=== PATIENT | female | born 1945 | race Caucasian/White ===

== ENCOUNTER → 2016-09-10 | Outpatient (CLI) | payer MEDICARE, OTHER ==
[2016-09-10 14:09] LABS: ANION GAP 8 MEQ/L (5-15); BUN/CREATININE RATIO 19 RATIO (6-26); CALCIUM 9.8 MG/DL (8.4-10.2); CHLORIDE 109 MEQ/L (98-107); CO2 - CARBON DIOXIDE 29 MEQ/L (22-30); CREATININE 1.2 MG/DL (0.7-1.2); GLOMERULAR FILTRATION RATE 44; GLUCOSE 139 MG/DL (65-110); POTASSIUM 4.9 MEQ/L (3.6-5); SODIUM 146 MEQ/L (134-144)
== END ==
LOC: LABN 13:54
PROVIDERS: ATTEND Nurse Practitioner Family
DX: M25.562 Pain in left knee (principal)
CPT/HCPCS: 80048; 85379

== ENCOUNTER 2016-11-20 07:01 | Inpatient (IN) ==
[~2016-11-20 07:01] MED LIST: CEFAZOLIN 1 G INJECTION IV ONE
[2016-11-20] MEDS ORDERED: LR 1,000 ML IV SCH (07:12)
[2016-11-20] MEDS ORDERED: NOZIN NASAL SWAB NAS ONE ×2 (07:12→11:48)
[2016-11-20] MEDS ORDERED: ACETAMINOPHEN 500 MG TABLET PO ONE (07:12)
[2016-11-20] MEDS ORDERED: METOCLOPRAMIDE 10mg/2ml INJECTION IVP ONE (07:12)
[2016-11-20] MEDS ORDERED: CEFAZOLIN 1 G INJECTION IV ONE (07:12)
[2016-11-20] MEDS ORDERED: FAMOTIDINE PREMIX 20 MG/50 ML BAG IV ONE (07:12)
[2016-11-20] MEDS ORDERED: MELOXICAM 15 MG TABLET PO ONE (07:12)
[2016-11-20] MEDS ORDERED: ONDANSETRON 4 MG/2 ML INJECTION IVP ONE (07:12)
[2016-11-20] MEDS ORDERED: EPINEPHrine 0.25 MG, BUPIVACAINE 0.25% PF 75 ML, MORPHINE SULFATE 15 MG, KETOROLAC INJ ... IJ ONE (07:12)
[2016-11-20] MEDS ORDERED: TRANEXAMIC ACID 1,000 MG in NS 100 ML IV ONE (07:12)
[2016-11-20] MEDS ORDERED: LIDOCAINE 1% (10mg/ml) 10mL MDV SQ ONE (07:12)
[2016-11-20] MEDS ORDERED: DEXAMETHASONE 4 MG/ML INJECTION IVP ONE (07:12)
[2016-11-20] MEDS ORDERED: VANCOMYCIN 1,000 MG INJECTION IA ONE (07:45)
[2016-11-20] MEDS ORDERED: LIDOCAINE 1% (10mg/ml) 2mL INJ PF SDV INFIL ONE (08:06)
--- NOTE | 2016-11-20 08:23 | Anesthesia Preoperative Report ---
Anesthesia Preoperative Record - Date and Time Preoperative Diagnosis: Severe deg OA Left knee Proposed Procedure: Lwft TKA NPO since: [place] Allergies/Adverse Reactions: Allergies Allergy/AdvReac Type Severity Reaction Status Date / Time No Known Allergies Allergy Unverified 11/11/16 08:48 - Vital Signs Vital Signs: Temp Pulse Resp BP Pulse Ox 97.9 F 76 16 130/81 97 11/20/16 07:20 11/20/16 07:20 11/20/16 07:20 11/20/16 07:20 11/20/16 07:20 - Medications Inpatient Medications: Current Medications Lactated Ringer's (Lactated Ringers) 1,000 mls @ 50 mls/hr IV .Q20H CLIFFORD Last Admin: 11/20/16 08:09 Dose: 50 mls/hr Lidocaine HCl (Xylocaine-Mpf 1% Vial) 20 mg INFIL O ONE Stop: 11/20/16 08:07 Last Admin: 11/20/16 08:08 Dose: 20 mg Home Medications: Home Medications Medication Instructions Recorded Confirmed Type Acetaminophen [Tylenol Extra 2 tab PO TID PRN #0 tab 10/13/16 History Strength] Meloxicam 15 mg PO DAILY #0 tab 10/13/16 History Is Patient on Beta Marilyn?: No - Surgical History GI Surgery/Treatments: Reports: Other (COLONOSCOPY) Reproductive Surgery/Treatment: Reports: Hysteroscopy (2003), Tubal Ligation - Social History Smoking Status: Never smoker Hx Chewing Tobacco Use: No Second Hand Exposure: No Substance Use Type: does not use Alcohol Intake Frequency: a few times a week (wine) Last Drink: hours (ago) (11/19/16) - Pertinent Findings EKG Rhythm: Normal Sinus Rhythm - Airway Assessment Mallampati Score: I TMD: 3 Fingerbreadths Neck Extension: good Overall Assessment: no airway concerns - ASA ASA Score: 2 - Plan Regional/Trunk Block: Spinal Peripheral Nerve Block: Saphenous-Left - Discussion Discussion: Discussed risks/options/alternatives of anesthesia and questions answered. Patient consents. Nursing pain assessment noted. Present for Discussion: spouse Attestation Statement: Prior to the delivery of any anesthetic medication, I examined the patient, developed the plan, obtained the patient's consent and discussed the risk and benefits of the procedure with the patient/guardian.
[2016-11-20] MEDS ORDERED: MIDAZOLAM 2mg/2ml INJECTION IVP ONE (09:00)
[2016-11-20] MEDS ORDERED: PROPOFOL 500 MG/50 ML IV ONE (09:00)
[2016-11-20] MEDS ORDERED: KETAMINE 500 MG/10 ML INJECTION IVP ONE (09:00)
[2016-11-20] MEDS ORDERED: FentaNYL 100 MCG/2 ML INJECTION IVP ONE (09:00)
[2016-11-20] MEDS ORDERED: ROPIVACAINE 0.5% (5mg/ml) 30ml INJ INJ ONE (09:00)
[2016-11-20] MEDS ORDERED: ONDANSETRON 4 MG/2 ML INJECTION IVP PRN ×3 (09:13→15:00)
[2016-11-20] MEDS ORDERED: HYDROMORPHONE 2 MG/ML INJECTION IVP PRN (09:13)
--- NOTE | 2016-11-20 10:37 | Operative Note ---
- Procedure Date of Admission: 11/20/16 Side: left Preoperative Diagnosis: knee primary DJD Postoperative Diagnosis: Same as preoperative diagnosis. Operation: total knee arthroplasty Surgeon: Derrick Mccullough MD Specimen Transporter: SIMON Del Valle Complications: None. Regional/Trunk Block: Spinal Estimated Blood Loss: See Anesthesia Record. Fluids: Please see Anesthesia Record. Description of Procedure: Mrs. Ballard and her left knee were identified and marked in the preoperative holding area. She is brought back operating suite and placed supine on the operating table she's placed under general anesthesia. The left lower extremity was prepped and draped in my normal sterile fashion. Timeout was performed. The leg was exsanguinated and tourniquet inflated 250 mmHg. A standard anterior incision followed by a medial parapatellar approach was utilized. The patella was resurfaced to a size 29. The tourniquet was then deflated. A distal femoral cut was made in 5 of valgus using intramedullary guide. The femur was sized at a 3 and rotation set using the epicondylar axis. Distal femoral cuts were performed. A proximal tibial cut was made using extramedullary guide. Remaining osteophytes and meniscus were removed. Gaps were checked and they were well balanced and rectangular. Trial components were placed with a 9 mm spacer. This allowed for full range of motion and the patella tracked well. The knee was stable throughout range of motion. The tourniquet was then reinflated. The tibia rotation was then marked and the tibia stamped at the proper rotation at a size 3. The bone was prepared for cementing and all components cemented into place and allowed to cure in extension. Betadine solution was used for 3 minutes during the curing period and then fully irrigated out with 1 L of normal saline. The tourniquet was deflated and hemostasis obtained with electrocautery. After the cement had cured the knee was taken through range of motion check for balance and stability which were good. Vancomycin powder was placed into the wound. The arthrotomy was closed with #1 Vicryl. The remainder of the wound was then closed by my dam tender assistant utilizing 2-0 vycral in the subcutaneous tissue. 4-0 monocryl was used in the subcuticular layer followed by dermabond and a sterile dressing. After closure the patient will be transferred to the recovery room under the care of anesthesia.
--- NOTE | 2016-11-20 10:42 | History & Physical Update ---
- History and Physical Update Date: 11/20/16 Update: I evaluated this patient and found no changes in the history and clinical exam findings. The treatment plan and recommendations are also unchanged from the previous documentation.
--- NOTE | 2016-11-20 11:29 | Anesthesia Postoperative Note ---
- Date and Time Date: 11/20/16 Time: 11:28 - Status Patient Participated in Evaluation: Patient Participated in Person Vital Signs: Temp Pulse Resp BP Pulse Ox 97.1 F 66 11 115/55 95 11/20/16 10:52 11/20/16 10:52 11/20/16 10:52 11/20/16 10:52 11/20/16 10:52 Respiratory Function: Airway Patent, Regular Respirations Cardiovascular Function: Regular Pulse Mental Status: Alert and Oriented Pain Intensity: 0 Hydration: IV Infusing Complications During Recover: None Apparent Post Anesthesia Care Notes: moves lower extremeties - Follow-Up Instructions Instructions: Per Surgeon
--- NOTE | 2016-11-20 11:41 | XRay Report ---
Indication: postop left knee replacement PROCEDURE: XR knee LT 2V: Encounter: Initial Comparison: None Findings: Postoperative changes of left total knee replacement are seen. There is expected postoperative subcutaneous gas. No evidence of hardware failure or acute fracture. No retained radiopaque surgical instruments or sponges. Overlying material causing artifact. Impression: New left total knee prosthesis without evidence of immediate complication. .
[2016-11-20] MEDS ORDERED: DiphenhydrAMINE 50 MG/ML INJECTION IVP PRN (11:48)
[2016-11-20] MEDS ORDERED: LORazepam 1 MG TABLET PO PRN (11:48)
[2016-11-20] MEDS ORDERED: DiphenhydrAMINE 25 MG CAPSULE PO PRN (11:48)
[2016-11-20] MEDS ORDERED: SENNOSIDES 8.6 MG TABLET PO PRN (11:48)
[2016-11-20] MEDS ORDERED: BISACODYL 10 MG SUPPOSITORY RECTALLY PRN (11:48)
[2016-11-20] MEDS ORDERED: TRAMADOL 50 MG TABLET PO PRN (11:48)
[2016-11-20] MEDS: NS 1,000 ML IV SCH (11:53)
[2016-11-20] MEDS ORDERED: PNEUMOCOCCAL 23 VACCINE 0.5ml INJECTION IM ONE (12:26)
[2016-11-20] MEDS: ACETAMINOPHEN 500 MG TABLET PO SCH ×2 (13:51→14:48)
[2016-11-20] MEDS: NOZIN NASAL SWAB NAS SCH ×2 (13:51→21:48)
--- NOTE | 2016-11-20 16:52 | Anesthesia Procedure Note ---
Peripheral Nerve Blockade - Procedure Physician: Mikhail Mccullough MD Date: 11/20/16 Discussion: Discussed risks/options/alternatives of anesthesia and questions answered. Patient consents. Nursing pain assessment noted. Block Start: 11:00 Block Stop: 11:05 Blocked Employed: Adductor Canal Indication: Post-Operative Pain Approach: Left Side Confirmed Position: Supine Patient: Consent, Risks/Benefits Discussed, Informed, Post Block Act. Discussed IV Sedation: No Sedation: Awake Initial Vital Signs: Temperature 97.9 F 11/20/16 07:20 Temperature Source Oral 11/20/16 07:20 Pulse Rate 76 11/20/16 07:20 Respiratory Rate 16 11/20/16 07:20 Blood Pressure 130/81 11/20/16 07:20 Blood Pressure Mean 97 11/20/16 07:20 Pulse Oximetry 97 11/20/16 07:20 Oxygen Delivery Method 11/20/16 07:20 Post Vital Signs: Temp Pulse Resp BP Pulse Ox 97.9 F 76 16 130/81 97 11/20/16 07:20 11/20/16 07:20 11/20/16 07:20 11/20/16 07:20 11/20/16 07:20 Initial Pain Pain Score: 0 Post Block Pain Score: 0 Prep: Chlorhexadine/ETOH Ultrasound Used?: Yes - Nerve Simulator Muscle Response: No Paresthesia/Pain: None - Injectate Was Epi 1:200,000 Used?: No Injection: Injection made incrementally with constant monitoring and aspiration every 3ml Ropivicaine 0.5% 15 ml Total Volume
[2016-11-20] MEDS: CEFAZOLIN 2 G in NS 100 ML IV SCH (17:49)
[2016-11-20] MEDS: ACETAMINOPHEN 325 MG TABLET PO SCH ×2 (17:51→21:47)
[2016-11-20] MEDS: DOCUSATE SODIUM 100 MG CAPSULE PO SCH (21:47)
[2016-11-20] MEDS: ASPIRIN *EC* 325 MG TABLET PO SCH (21:47)
[2016-11-20] MEDS ORDERED: SENNOSIDES 8.6 MG TABLET PO SCH (22:00)
[2016-11-21] MEDS: CEFAZOLIN 2 G in NS 100 ML IV SCH (01:55)
[2016-11-21] MEDS: NS 1,000 ML IV SCH (01:56)
[2016-11-21] MEDS: NOZIN NASAL SWAB NAS SCH (06:01)
--- NOTE | 2016-11-21 07:34 | Orthopedic Progress Note ---
Date: Subjective/Severity of Illness: Chichi is doing well. Pain is controlled. She expects discharge later today. Denies CP, cough or SOA. No N/V. She was up with good tolerance. Orthopedic Objective PO Vital signs: Temp Pulse Resp BP Pulse Ox 97.1 F 81 18 137/64 99 11/21/16 03:32 11/21/16 03:32 11/21/16 03:32 11/21/16 03:32 11/21/16 03:32 Height and Weight: Height 5 ft 5 in Weight 80.4 kg Body Mass Index 29.5 - Constitutional General Appearance: Present: alert, no acute distress - Respiratory Exam Present: CTA bilaterally, non-labored - Cardiovascular Exam Present: pedal pulses intact - Surgical Site Incision: Mepilex dressing intact, no drainage - Neurological Exam Present: no deficits - Psychiatric Exam Present: alert, normal affect - Labs Result Diagrams: 11/21/16 04:13 11/21/16 04:13 Abnormal lab results 11/21/16 11/21/16 Range/Units 04:13 04:13 WBC 15.8 H (4.5-11.0) T/MM3 Hgb 11.8 L (12-16) GM/DL Chloride 111 H (98-107) MEQ/L BUN 18.0 H (7-17) MG/DL Glucose 120 H (65-110) MG/DL Specimen Hemolysis 26 H (0-25) H & H 11/21/16 Range/Units 04:13 Hgb 11.8 L (12-16) GM/DL Hct 36.3 (36-46) % Orthopedic Assessment and Plan (1) Primary osteoarthritis of left knee Status: Chronic Assessment and Plan: Aspirin 325mg BID x 6 weeks for DVT coverage. SCDs and mobilization for added DVT coverage. PT / OT for rehab. CM for discharge planning. Hospital Course Summary Disclaimer: The visit summary below is not to be considered part of the above Progress Note.
[2016-11-21] MEDS: ACETAMINOPHEN 325 MG TABLET PO SCH ×3 (08:21→12:13)
[2016-11-21] MEDS: ASPIRIN *EC* 325 MG TABLET PO SCH (08:22)
[2016-11-21] MEDS: DOCUSATE SODIUM 100 MG CAPSULE PO SCH (08:22)
[2016-11-21] MEDS ORDERED: MELOXICAM 15 MG TABLET PO SCH (09:00)
[2016-11-21] MEDS ORDERED: POLYETHYL GLYCOL 3350 17gm PACKET PO SCH (09:00)
--- NOTE | 2016-11-21 12:55 | Discharge Summary ---
Orthopedic Discharge Info Date of admission: 11/20/16 07:01 Anticipated date of discharge: 11/21/16 Attending Physician: Mikhail Mccullough MD Consults: 11/20/16 07:12 Consult to Anesthesiology [CONS] Routine Consulting Provider: SIMON Romero Reason For Exam: Preoperative Assessment Consult to Anesthesiology [CONS] Routine Consulting Provider: SIMON Romero Reason For Exam: REGIONAL BLOCK 11/20/16 11:48 Case Management Consult [CONS] Routine Reason For Exam: Discharge Planning DME-Walker [CONS] Routine Height: 5 ft 5 in Weight: 177 lb 4.026 oz Total Joint Outpatient Therapy [CONS] Routine - Discharge Diagnosis (1) Primary osteoarthritis of left knee Status: Chronic - Procedures Procedures: Left Total knee replacement - Laboratory Result Diagrams: 11/21/16 04:13 11/21/16 04:13 Laboratory: Abnormal lab results 11/21/16 11/21/16 Range/Units 04:13 04:13 WBC 15.8 H (4.5-11.0) T/MM3 Hgb 11.8 L (12-16) GM/DL Chloride 111 H (98-107) MEQ/L BUN 18.0 H (7-17) MG/DL Glucose 120 H (65-110) MG/DL Specimen Hemolysis 26 H (0-25) H & H 11/21/16 Range/Units 04:13 Hgb 11.8 L (12-16) GM/DL Hct 36.3 (36-46) % Orthopedic Discharge HPI - HPI Comments This patient was admitted for elective surgical tx of end stage degenerative joint disease that failed to respond to conservative treatment. Further details of this is found in the admission H&P. Orthopedic Hospital Course Hospital course: 11/21/16 12:53 After appropriate preoperative clearance and signing of operative consent, the patient was given IV antibiotics, according to orthopedic protocol. The patient was taken to the operating room and underwent elective left total knee arthroplasty. Following surgery, antibiotics were discontinued less than 24 hours according to joint protocol. Aspirin was initiated and SCDs added for DVT prevention. The dressing was clean, dry, and intact. Pain control was obtained via multimodal approach. Bowel motivation addressed with scheduled and PRN medications. Early mobilization was initiated through PT services. Discharge arrangements made by a collaborative effort between the patient and Case Management. Follow-up is scheduled in 2-3 weeks. Discharge instructions given by orthopedic providers and nursing staff at discharge. Discharge condition was good. Ongoing care required?: No Discharge Plan - Med Rec/Dispo Referrals/Follow Up: Mikhail Mccullough MD [Physician] - 12/15/16 8:30 am Naomi Instructions: [facility] [place] Postop Instructions Additional Instructions: [facility] ON 11/24/2016 AT 2:00PM FOR PHYSICAL THERAPY EVAL. PLEASE COMPLETE THE PAPERWORK IN THE [facility] [place] [facility] PRIOR TO THE APPOINTMENT. PHONE [phone] Prescriptions: New Acetaminophen [Tylenol] 650 mg PO QID Peg 3350 17 G Packet [Miralax] 17 gm PO DAILY packet Tramadol [Ultram] 50 - 100 mg PO Q6H PRN #60 PRN Reason: Pain Aspirin *EC* [Ecotrin] 325 mg PO BID Docusate Sodium [Colace] 100 mg PO BID cap Continue Meloxicam 15 mg PO DAILY #0 tab Acetaminophen [Tylenol Extra Strength] 2 tab PO TID PRN #0 tab PRN Reason: PAIN/FEVER - Disposition 01 Discharged Home, Self-Care
== END 2016-11-21 14:05 | disposition home or self-care (01) | DRG 470 ==
LOC: SRG 07:01
PROVIDERS: ADMIT Orthopaedic Surgery; ATTEND Orthopaedic Surgery